=== PATIENT | male | born 2000 | race Hispanic/Latino ===

== ENCOUNTER 2021-08-14 12:10 | Emergency (ER) | payer OTHER ==
[~2021-08-14] VITALS: Ht 172.7 cm; Wt 87.6 kg
[2021-08-14] MEDS ORDERED: NS 1,000 ML IV ONE (12:35)
[2021-08-14 14:03] VITALS: BP 115/76
== END 2021-08-14 14:06 | disposition home or self-care (01) ==
LOC: M ED 12:10
DX: B34.8 Other viral infections of unspecified site (principal); R19.7 Diarrhea, unspecified